=== PATIENT | female | born 1985 | race Caucasian/White ===

== ENCOUNTER 2016-12-19 14:42 | Emergency (ER) | payer OTHER ==
--- NOTE | 2016-12-19 16:39 | UC ---
Throat Pain/Nasal [place] HPI - HPI Summary HPI Summary: TWO DAYS FO SORE THROAT; EXPOSED TO STREP . NO FEVER, NO RASH, NO ABDOMAINL PAIN - History of Current Complaint Chief Complaint: UCRespiratory Stated Complaint: SORE THROAT Time Seen by Provider: 12/19/16 15:13 Hx Obtained From: Patient Hx Last Menstrual Period: 12/09/16 iud Onset/Duration: Gradual Onset, Lasting Days, Still Present Severity: Mild Pain Intensity: 2 Pain Scale Used: 0-10 Numeric Cough: None Associated Signs & Symptoms: Positive: Hoarseness - Epiglottits Risk Factors Epiglottis Risk Factors: Negative - Allergies/Home Medications Allergies/Adverse Reactions: Allergies Allergy/AdvReac Type Severity Reaction Status Date / Time No Known Allergies Allergy Verified 12/19/16 15:06 Home Medications: Home Medications Duloxetine HCl 40 mg PO 12/19/16 [History] PMH/Surg Hx/FS Hx/Imm Hx Previously Healthy: Yes - Surgical History Surgical History: None - Family History Known Family History: Negative: Respiratory Disease - Social History Occupation: Employed Full-time Lives: With Family Alcohol Use: Rare Substance Use Type: None Smoking Status (MU): Never Smoked Tobacco Review of Systems Constitutional: Negative Skin: Negative Eyes: Negative ENT: Sore Throat Respiratory: Negative Cardiovascular: Negative Gastrointestinal: Negative Genitourinary: Negative Motor: Negative Neurovascular: Negative Musculoskeletal: Negative Neurological: Negative Psychological: Negative All Other Systems Reviewed And Are Negative: Yes Physical Exam Triage Information Reviewed: Yes Appearance: Well-Appearing, No Pain Distress, Well-Nourished Vital Signs: Initial Vital Signs Temp 98.7 F 12/19/16 15:02 Pulse 90 12/19/16 15:02 Resp 20 12/19/16 15:02 BP 114/69 12/19/16 15:02 Pulse Ox 99 12/19/16 15:02 Vital Signs Reviewed: Yes Eye Exam: Normal ENT: Positive: Hearing grossly normal, Pharyngeal erythema, TMs normal, Tonsillar swelling Dental Exam: Normal Neck exam: Normal Neck: Positive: Supple, Nontender, No Lymphadenopathy Respiratory Exam: Normal Respiratory: Positive: Chest non-tender, Lungs clear, Normal breath sounds, No respiratory distress, No accessory muscle use Cardiovascular Exam: Normal Cardiovascular: Positive: RRR, No Murmur, Pulses Normal Abdominal Exam: Normal Abdomen Description: Positive: Nontender, No Organomegaly Musculoskeletal Exam: Normal Musculoskeletal: Positive: Strength Intact, ROM Intact Neurological Exam: Normal Psychological Exam: Normal Skin Exam: Normal Throat Pain/Nasal Course/Dx - Differential Dx/Diagnosis Differential Diagnosis/HQI/PQRI: Pharyngitis, Tonsillitis, URI Provider Diagnoses: TONSILLITIS Discharge - Discharge Plan Condition: Stable Disposition: HOME Patient Education Materials: Tonsillitis (ED) Referrals: [facility] [Outside] Additional Instructions: PRIMARY CARE: There are four major types of clinical preventive care: immunizations, screening , behavioral counseling (sometimes referred to as lifestyle changes), and chemoprevention. All four apply throughout the life span. It is important to establish and to have access to a Primary Care Physician, not only for follow- up regrding acute and chronic problems, but also for preventative care.
== END 2016-12-19 15:47 | disposition home or self-care (01) ==
LOC: EDBD → UCEAST 14:42
DX: J03.90 Acute tonsillitis, unspecified (principal)
CPT/HCPCS: 87651; 99201; G0463

== ENCOUNTER 2019-03-15 09:02 | Emergency (ER) | payer OTHER ==
--- OUTSIDE RECORDS SUMMARY | 2019-03-15 09:14 | XMS REPORT | Continuity of Care Document ---
:1985 External Reference #:[id number] Author Name MARIA DEL CARMEN Page Address [address] [place] [address] Care Team Providers Name Role Phone Shivani Kiser - Gynecology Care Team Information Stand Up Comedian [phone] Problems Active Problems Provider Date Anxiety Manju Mcghee MD Onset: 07/11/2018 Acne Manju Mcghee MD Onset: 07/11/2018 Hyperlipidemia Manju Mcghee MD Onset: 08/18/2018 Social History Type Date Description Comments Sex Unknown Tobacco Use Reviewed: 11/07/18 Never Smoked Cigarettes Smoking Status Reviewed: 11/07/18 Never Smoked Cigarettes ETOH Use Currently consumes 1 glass 2 x week alcohol Recreational Drug Use Never Used Drugs Tobacco Use Reviewed: 07/11/18 Patient has never smoked Allergies, Adverse Reactions, Alerts Description No Known Drug Allergies Medications Active Medications SIG Qnty Indications Ordering Date Provider Spironolactone 1 by mouth every L70.0 Unknown 50mg day Tablets Magnesium 1 by mouth every G43.109 Unknown 400mg Tablets day Vitamin B-2 4 by mouth every G43.109 Unknown 100mg Tablets day Ibuprofen 200 4 by mouth three G43.109 Unknown 200mg to four days Tablets weekly for migraines Effexor XR 1 by mouth every 30caps F41.1 Manju Mcghee, 75mg Caps ER day 24HR Cardizem CD 1 by mouth every G43.109 Unknown 120mg Caps ER day for migraines 24HR Rachna-Be take 1 tablet by Unknown 0.35mg Tablets mouth daily for 28 days for control Immunizations CPT Code Status Date Vaccine Lot # [id number] Given 08/23/2018 Adacel - Tdap [facility] 12664-382-46 06/26 cc [id number] Given 08/23/2018 Flu, Multi-Dose Vial W/Preservative (Age 3 Yrs And [id number] Older)Quad 0.5 Vital Signs Date Vital Result Comment 11/07/2018 3:10pm BP Systolic 110 mmHg BP Diastolic 68 mmHg Heart Rate 66 /min Body Temperature 98.5 F Respiratory Rate 14 /min Weight 152.00 lb Weight 68.947 kg Height 63.5 inches 5'3.50" BMI (Body Mass Index) 26.5 kg/m2 08/23/2018 2:03pm BP Systolic 122 mmHg BP Diastolic 80 mmHg Heart Rate 84 /min Body Temperature 98.1 F Respiratory Rate 14 /min Weight 154.00 lb Weight 69.854 kg Height 63.5 inches 5'3.50" BMI (Body Mass Index) 26.8 kg/m2 Results Test Date Facility Test Result H/L Range Note Urinalysis/Microscopic 01/24/2019 [facility] Color Yellow Appearance Clear Clear Leukocytes Negative Negative Nitrite Negative Negative Urobilinogen 0.2 E.U./dL 0.2-1.0 Protein Negative Negative pH 7.0 5.0-8.5 Blood (Hemoglobin) Negative Negative Specific [place] 1.010 1.005-1.025 Ketone Negative Negative Bilirubin Negative Negative Glucose Negative Negative Comment Essentially [facility] <SEE NOTE> 1 Comprehensive Metabolic 11/15/2018 [facility] Glucose 88.00 mg/dL 70.00- 110.00 Panel Urea Nitrogen 12 mg/dL 7-19 CreaC 0.8 mg/dL 0.6-1.1 GFR 87.47 mL/min 2 Na-C 136 mmol/L 136-145 K-C 3.8 mmol/L 3.5-5.1 Cl-C 102 mmol/L 98-107 Total Protein 7.5 g/dL 6.4-8.3 Alb P 4.40 g/dL 3.30-5.00 Alanine Aminotransferase 15 U/L 0-55 Aspartate Aminotransferase 18 U/L 5-34 Alkaline Phosphatase 51 U/L 40-150 Carbon Dioxide 27.00 mmol/L 22.00-31.00 A/G 1.42 Osmo 281.17 275.00-295.00 CaC 9.80 mg/dL 8.90-10.40 Total Bilirubin 0.3 mg/dL 0.2-1.2 Glob 2 3.10 2.30-4.20 BUN/CR 15.00 10.00-20.00 Urinalysis/Microscopic 11/15/2018 [facility] Color Yellow Appear Clear Clear Leuk Negative Negative Nitrite Negative Negative Urobil 0.2 E.U./dL 0.2-1.0 Protein Negative Negative pH 6.5 5.0-8.5 Blood 1+ Abnormal Negative S.G. 1.020 1.005-1.025 Ketone Negative Negative Bili Negative Negative Glu Negative Negative U-WBC 6-10 Abnormal 0-2 U-RBC 6-10 Abnormal 0-2 Laboratory test 11/15/2018 [facility] Urine Culture Comment 3 finding Order 11/07/2018 [facility] Care Occult - Negative [address] [facility] [place] [address] Have Diagnosis - [phone] No Screening!!!!! Laboratory test 11/07/2018 [facility] Urine Culture Comment 4 finding Urinalysis/Microsco 11/07/2018 [facility] Color Yellow pic Appear Clear Clear Leuk Negative Negative Nitrite Negative Negative Urobil 1.0 E.U./dL 0.2-1.0 Protein Negative Negative pH 7.0 5.0-8.5 Blood Negative Negative S.G. 1.020 1.005-1.025 Ketone 2+ Abnormal Negative Bili Negative Negative Glu Negative Negative Comment Essentially Nega <SEE NOTE> 5 Laboratory test finding 11/07/2018 [facility] HCG-urine Negative Negative Affirm Vpiii 11/07/2018 [facility] Trichomonas Negative Negative Gardnerella Negative Negative Seda Negative Negative Amylase & Lipase 11/07/2018 [facility] Amylase 69 U/L 25-125 Lipase 36 U/L 8-78 Comprehensive 11/07/2018 [facility] Glucose 136.00 mg/dL High 70.00- 110.00 Metabolic Panel Urea Nitrogen 12 mg/dL 7-19 CreaC 0.8 mg/dL 0.6-1.1 GFR 91.42 mL/min 6 Na-C 133 mmol/L Low 136-145 K-C 4.0 mmol/L 3.5-5.1 Cl-C 101 mmol/L 98-107 Total Protein 7.1 g/dL 6.4-8.3 Alb P 4.10 g/dL 3.30-5.00 Alanine Aminotransferase 16 U/L 0-55 Aspartate Aminotransferase 19 U/L 5-34 Alkaline Phosphatase 50 U/L 40-150 Carbon Dioxide 24.00 mmol/L 22.00-31.00 A/G 1.37 Osmo 277.84 275.00-295.00 CaC 9.60 mg/dL 8.90-10.40 Total Bilirubin 0.3 mg/dL 0.2-1.2 Glob 2 3.00 2.30-4.20 BUN/CR 15.58 10.00-20.00 CBC/Automated Differential 11/07/2018 [facility] WBC 9.51 k/uL 4.60- 10.20 Matheus 7.32 2.00-7.50 %N 77.0 % 37.0-80.0 Lym 1.60 K/UL 1.20-4.80 %L 16.8 % 10.0-50.0 Cannon 0.473 0.000-0.900 %M 4.98 % 0.00-12.00 Eos 0.044 0.000-0.700 %E 0.46 % 0.00-7.00 Baso 0.075 0.000-0.200 %B 0.78 % 0.00-4.00 RBC 4.29 m/uL 4.04-6.13 Hemoglobin 12.7 g/dL 12.2-18.1 Hematocrit 36.9 % Low 37.7-47.0 MCV 85.9 fL 80.0-97.0 MCH 29.7 pg 27.0-31.2 MCHC 34.5 g/dL 31.8-35.4 RDW 12.1 % 11.6-14.8 PLT 354 K/uL 142-424 MPV 6.5 fL 0.0-99.9 DR Mcghee Standard Panel 08/15/2018 [facility] TSH 1.464 uIU/mL 0.350- 4.940 FT4_6 0.93 ng/dL 0.70-1.48 CBC/Automated Differential 08/15/2018 [facility] WBC 5.16 k/uL 4.60- 10.20 Matheus 3.16 2.00-7.50 %N 61.3 % 37.0-80.0 Lym 1.37 K/UL 1.20-4.80 %L 26.5 % 10.0-50.0 Cannon 0.509 0.000-0.900 %M 9.88 % 0.00-12.00 Eos 0.064 0.000-0.700 %E 1.23 % 0.00-7.00 Baso 0.054 0.000-0.200 %B 1.06 % 0.00-4.00 RBC 4.96 m/uL 4.04-6.13 Hemoglobin 13.9 g/dL 12.2-18.1 Hematocrit 42.0 % 37.7-47.0 MCV 84.7 fl 80.0-97.0 MCH 28.0 pg 27.0-31.2 MCHC 33.0 g/dL 31.8-35.4 RDW 11.9 % 11.6-14.8 PLT 308 K/uL 142-424 MPV 7.2 fL 0.0-99.9 Comprehensive Metabolic 08/15/2018 [facility] Glucose 92.00 mg/dL 70.00- 110.00 Panel Urea Nitrogen 18 mg/dL 7-19 CreaC 0.8 mg/dL 0.6-1.1 GFR 83.96 mL/min 7 Na-C 135 mmol/L Low 136-145 K-C 4.8 mmol/L 3.5-5.1 Cl-C 103 mmol/L 98-107 Total Protein 7.5 g/dL 6.4-8.3 Alb P 4.20 g/dL 3.30-5.00 Alanine Aminotransferase 16 U/L 0-55 Aspartate Aminotransferase 16 U/L 5-34 Alkaline Phosphatase 53 U/L 40-150 Carbon Dioxide 24.00 mmol/L 22.00-31.00 BUN/CR 21.69 High 10.00-20.00 A/G 2.27 1.46-2.46 Osmo 281.54 275.00-295.00 CaC 10.40 mg/dL 8.90-10.40 Total Bilirubin 0.3 mg/dL 0.2-1.2 Glob 2 3.30 2.30-4.20 Lipid Panel(New) 08/15/2018 [facility] Cholesterol 214 mg/dL High 112- 200 8 Triglyceride 105 mg/dL 1-200 9 HDL 51 mg/dL 30-85 10 Chol/HDL 4.20 4.00-6.70 NHDL 163.00 mg/dL High 0.00-100.00 11 LDL-C 142.00 mg/dL High 20.00-130.00 12 1 Essentially Negative Urine 2 NORMAL FUNCTION OR MILD RENAL DISEASE:>60 ml/min ADVANCED RENAL DISEASE:15-59 ml/min RENAL FAILURE:<15 ml/min 3 SPECIMEN DESCRIPTION URINE, COLLECTION METHOD NOT SPECIFIED CULTURE RESULTS <10,000 CFU/ML REPRESENTING URETHRAL KESHA REPORT STATUS FINAL 11/17/2018 Unless otherwise specified, testing performed by [facility] [place] [address] 4 SPECIMEN DESCRIPTION MIDSTREAM URINE,CLEAN CATCH CULTURE RESULTS NO GROWTH REPORT STATUS FINAL 11/08/2018 Unless otherwise specified, testing performed by [facility] [place] [address] 5 Essentially Negative Urine 6 NORMAL FUNCTION OR MILD RENAL DISEASE:>60 ml/min ADVANCED RENAL DISEASE:15-59 ml/min RENAL FAILURE:<15 ml/min 7 NORMAL FUNCTION OR MILD RENAL DISEASE:>60 ml/min ADVANCED RENAL DISEASE:15-59 ml/min RENAL FAILURE:<15 ml/min 8 GOAL LESS THAN 200 9 GOAL LESS THAN 200 10 GOAL GREATER THAN 45 11 GOAL LESS THAN 100 12 GOAL LESS THAN 100 Procedures Date Code Description Status 11/07/2018 74743 Radiologic Exam, Abdomen, 2 Views Completed Medical Devices Description No Information Available Encounters Type Date Location Provider Dx Diagnosis Office Visit 11/07/2018 [address] Stephanie Basurto, N76.0 Acute vaginitis 3:15p [employer]-C R10.31 Right lower quadrant pain K59.09 Other constipation R19.5 Other fecal abnormalities Office Visit 08/23/2018 2:[address]p [address] Manju Mcghee Z00.00 Encntr for Stephanie MITTAL general adult medical exam w/o abnormal findings G43.109 Migraine with aura, not intractable, w/o status migrainosus F41.1 Generalized anxiety disorder Z30.8 Encounter for other contraceptive management Z23 Encounter for immunization Assessments Date Code Description Provider 01/24/2019 R82.998 Other abnormal findings in urine TADEO PageC 11/15/2018 R79.89 Other specified abnormal findings of blood MARIA DEL CARMEN Page chemistry 11/15/2018 R10.31 Right lower quadrant pain Fartun BasurtoLEAH-C 11/07/2018 N76.0 Acute vaginitis Fartun CabezasMARIA DEL CARMEN carpio 11/07/2018 R10.31 Right lower quadrant pain Fartun BasurtoLEAH-C 11/07/2018 K59.09 Other constipation Fartun AndradeMARIA DEL CARMEN starks 11/07/2018 R19.5 Other fecal abnormalities Fartun MARIA DEL CARMEN Basurto 08/23/2018 Z00.00 Encounter for general adult medical Manju Mcghee MD examination without abno 08/23/2018 G43.109 Migraine with aura, not intractable, Manju Mcghee MD without status migraino 08/23/2018 F41.1 Generalized anxiety disorder Manju Mcghee MD 08/23/2018 Z30.8 Encounter for other contraceptive Manju Mcghee MD management 08/23/2018 Z23 Encounter for immunization Manju Mcghee MD 08/15/2018 G43.109 Migraine with aura, not intractable, Manju Mcghee MD without status migrainosus 08/15/2018 G43.109 Migraine with aura, not intractable, w/o Lab status migrainosus 08/15/2018 Z82.49 Family history of ischemic heart disease Manju Mcghee MD and other diseases of the circulatory system 08/15/2018 Z82.49 Family hx of ischem heart dis and oth dis [facility] Plan of Treatment 11/07/2018 - Fartun BasurtoLEAH-CN76.0 Acute vaginitisComments:Affirm sent to the lab. We will call with those results and treat accordingly.R10.31 Right lower quadrant painK59.09 Other constipationComments:recommend home treatment with over the counter medications and dietary changes, prior to starting any type of prescription medication for constipation. 1. Increase water intake at home. try to drink close to 5 tall glasses of water a day if possible2. Heating pad to abdomen as needed for cramping and pains. This relaxes the bowel muscles causing less pain3. Recommend taking daily stool softener and daily probiotic.4. Do not strain to have a bowel movement, this can cause worsening of symptoms and severe cramping. 5. Give yourself plenty of time in the bathroom to finish voiding6. Over the counter Miralax and Magnesium Citrate can help with acute symptoms, or Miralax can also be take a few times a week to help keep someone regular. 7. Safe home remedies for constipation include eating prunes or drinking prune juice. 8. Monitor for changes in your symptoms. If you develop any sudden worsening of pain, acute vomiting, or inability to pass gas and stool, seek immediate medical attention.R19.5 Other fecal abnormalitiesComments:Continue to monitor. We will send you to GI for consult.Referral:Lucille Pascal MD ([facility]), Gastroenterology Functional Status Functional Condition Comment Date Status .None Active Mental Status Description No Information Available Referrals Refer to Reason for Referral Status Appt Date Lucille Pascal MD ([facility]) Consultation/treatment for Patient Notified blood in stool and stool changes. [facility] of [address], [address] [place] [address] [phone]
--- NOTE | 2019-03-15 09:35 | ED ---
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 Patient reports photophobia. Symptoms aggravated by bright lights. Symptoms alleviated by nothing. Patient states she has been taking her normal dose of Effexor without relief. Patient states that she finished a 10-day course of Augmentin yesterday for a right ear infection, fluid in her bilateral ears, and sinus infection. Patient states that this morning, she had an episode of vomiting and diarrhea. Patient reports emotional distress since this morning. PMHX: kidney stones, ovarian cysts, uterine fibroids, Tourette syndrome. Patient states she drinks alcohol socially. - History Of Current Complaint Chief Complaint: EDHeadache Stated Complaint: HEADACHE Hx Obtained From: Patient Hx Last Menstrual Period: 12/09/16 iud Onset/Duration: Started hours ago, Still Present Currently Pain Is: Current Pain Scale(0-10)= - 10, Severe Timing: Constant Aggravating Factor: Bright Lights Allevating Factors: Nothing Associated Signs And Symptoms: Vomiting, Other (Noted In Comments) - photophobia , diarrhea, emotional distress - Allergies/Home Medications Allergies/Adverse Reactions: Allergies Allergy/AdvReac Type Severity Reaction Status Date / Time No Known Allergies Allergy Verified 03/15/19 09:08 PMH/Surg Hx/FS Hx/Imm Hx History: Reports: Hx Kidney Stones, Other Problems/Disorders - ovarian cyst, uterine fibroids Neurological History: Reports: Hx Headaches, Hx Migraine Psychiatric History: Reports: Other Psychiatric Issues/Disorders - Tourette syndrome - Surgical History Surgery Procedure, Year, and Place: none Infectious Disease History: No Infectious Disease History: Denies: Traveled Outside the [place] in Last 30 Days - Family History Known Family History: Negative: Respiratory Disease - Social History Alcohol Use: Rare Hx Substance Use: No Substance Use Type: Reports: None Hx Tobacco Use: No Smoking Status (MU): Never Smoked Tobacco Review of Systems Positive: Photophobia Positive: Vomiting, Diarrhea Positive: Headache Positive: Other - emotional distress All Other Systems Reviewed And Are Negative: Yes Physical Exam - Summary Physical Exam Summary: VITAL SIGNS: Reviewed. GENERAL: Patient is a well-developed and nourished FEMALE who is lying comfortable in the stretcher. Patient is not in any acute respiratory distress. Patient is in severe distress secondary to the pain. Patient is photophobic, but does not have any meningeal signs. HEAD AND FACE: No signs of trauma. No ecchymosis, hematomas or skull depressions. No sinus tenderness. EYES: PERRLA, EOMI x 2, No injected conjunctiva, no nystagmus. EARS: Hearing grossly intact. Ear canals and tympanic membranes are within normal limits. MOUTH: Oropharynx within normal limits. NECK: Supple, trachea is midline, no adenopathy, no JVD, no carotid bruit, no c- spine tenderness, neck with full ROM. CHEST: Symmetric, no tenderness at palpation. LUNGS: Clear to auscultation bilaterally. No wheezing or crackles. CVS: Regular rate and rhythm, S1 and S2 present, no murmurs or gallops appreciated. ABDOMEN: Soft, non-tender. No signs of distention. No rebound, no guarding, and no masses palpated. Bowel sounds are normal. EXTREMITIES: FROM in all major joints, no edema, no cyanosis or clubbing. NEURO: Alert and oriented x 3. No acute neurological deficits. Speech is normal and follows commands. SKIN: Dry and warm. Triage Information Reviewed: Yes Vital Signs On Initial Exam: Initial Vitals Temp Pulse Resp BP Pulse Ox 96.8 F 80 20 125/73 99 03/15/19 09:02 03/15/19 09:02 03/15/19 09:02 03/15/19 09:02 03/15/19 09:02 Vital Signs Reviewed: Yes Diagnostics - Vital Signs Vital Signs Temp Pulse Resp BP Pulse Ox 03/15/19 09:02 96.8 F 80 20 125/73 99 - Laboratory Result Diagrams: 03/15/19 09:49 03/15/19 09:49 Lab Statement: Any lab studies that have been ordered have been reviewed, and results considered in the medical decision making process. Re-Evaluation - Re-Evaluation First Eval Re-Evaluation Time: 12:37 Change: Improved Comment: patient feels 100% better. patient is agreeable to discharge Headache Course/Dx - Course Assessment/Plan: At arrival to the Emergency Department, the patient is in severe distress secondary to the pain. Therefore, the patient was given IV fluids, Toradol, Reglan, Benadryl and morphine for the pain and nausea and vomiting. Blood work without any significant abnormality except for glucose of 111. Reassessment: The patient is sleeping comfortably in no distress. The patient is hemodynamically stable. After medications, the patients symptoms have significantly improved. The patient reports that the pain is 0/10. Therefore, the patient will be discharged home with follow-up with [facility]. The patient is hemodynamically stable, alert, oriented 3. - Diagnoses Provider Diagnoses: Migraine headache Discharge ED - Sign-Out/Discharge Documenting (check all that apply): Patient Departure - Discharge Patient Received Moderate/Deep Sedation with Procedure: No - Discharge Plan Condition: Stable Disposition: HOME Patient Education Materials: Migraine Headache (ED) [facility]errals: [facility] [Outside] - 3 Days Additional Instructions: Follow up with [facility] in 3 days. Return to the Emergency Department for new or worsening symptoms. - Billing Disposition and Condition Condition: STABLE Disposition: Home - Attestation Statements Document Initiated by Ralphibe: Yes Documenting Scribe: Marie Mora Provider For Whom Ralphibe is Documenting (Include Credential): Campbell Dover MD Scribe Attestation: Marie Gonsales scribed for Campbell Dover MD on 03/15/19 at 1839. Scribe Documentation Reviewed: Yes Provider Attestation: The documentation as recorded by the Marie morales accurately reflects the service I personally performed and the decisions made by Campbell dimas MD Status of Scribe Document: Viewed
[2019-03-15] MEDS ORDERED: Morphine 4 MG/ML VIAL (1 ml) 4 MG/ML VIAL IV ONE (09:37)
[2019-03-15] MEDS ORDERED: Metoclopramide IV* 5 MG/ML 2 ML VIAL IV ONE (09:37)
[2019-03-15] MEDS ORDERED: Ketorolac INJ* 30 MG/ML 1 ML VIAL IV ONE (09:37)
[2019-03-15] MEDS ORDERED: diPHENhydraMINE IV* 50 MG/ML 1 ml VIAL (BENADRYL) IV ONE (09:37)
[2019-03-15] MEDS ORDERED: NS 0.9% 1000 ML** 1,000 ML IV ONE (09:37)
[2019-03-15 10:01] LABS: ABS Monocytes 0.6 10^3/ul (0-0.8); ABS Neutrophils 8.7 10^3/ul (1.5-7.7); Eosinophil % 0.4 %; Hematocrit 39 % (35-47); Hemoglobin 13.4 g/dL (12.0-16.0); Lymphocyte % 9.6 %; Mean Corpuscular HGB Conc 35 g/dL (31-36); Mean Corpuscular Hemoglobin 30 pg (27-31); Mean Corpuscular Volume 87 fL (80-97); Mean Platelet Volume 7.4 fL (7.4-10.4); Platelet Count 307 10^3/uL (150-450); Red Blood Count 4.46 10^6 /uL (3.70-4.87); Red Cell Distribution Width 13 % (10-15); White Blood Count 10.4 10^3/uL (3.5-10.8)
[2019-03-15 10:18] LABS: Albumin 4.3 g/dL (3.2-5.2); Albumin/Globulin Ratio 1.6 (1-3); BUN/Creatinine Ratio 17.6 (8-20); Calcium 9.4 mg/dL (8.6-10.3); EGFR African American 120.6 (>60); EGFR Non-African American 99.6 (>60); Globulin 2.7 g/dL (2-4); Potassium 4.6 mmol/L (3.5-5.0); Total Bilirubin 0.4 mg/dL (0.2-1.0)
[2019-03-15 11:07] LABS: Erythrocyte Sed Rate 12 mm/Hr (0-19)
[2019-03-15 13:54] VITALS: BP 98/50
== END 2019-03-15 13:51 | disposition home or self-care (01) ==
LOC: ED 09:02
DX: G43.909 Migraine, unspecified, not intractable, without status migrainosus (principal); F95.2 Tourette's disorder
CPT/HCPCS: 36415; 80053; 82375; 85025; 85652; 96361; 96374; 96375; 99282; J1200; J1885; J2270; J2765